=== PATIENT | female | born 1950 | race Hispanic/Latino ===

== ENCOUNTER → 2020-05-19 | Outpatient (CLI) | payer MEDICARE, OTHER ==
--- NOTE | 2020-05-19 14:24 | Diagnostic Imaging Report ---
TECHNIQUE: Magnetic resonance imaging of the RIGHT KNEE was performed WITHOUT injected contrast. HISTORY: Right knee pain, right knee medial/lateral meniscus tear COMPARISON: None available. FINDINGS: LIGAMENTS AND TENDONS: ACL: Intact PCL: Intact Collateral ligaments: Intact Iliotibial band: Unremarkable Popliteal tendon: Intact Extensor mechanism: Intact. Enthesopathic changes at the quadriceps insertion on the superior patella. Mild increased signal of the semimembranosus insertion, consistent with tendinosis without discrete tear. JOINT: Menisci: Medial: Oblique undersurface tear at the body and posterior horn. Meniscal fragment at the body extends into the meniscotibial recess. Lateral: Intact Articular Cartilage: Medial Compartment: Low-grade cartilage loss along the weightbearing medial femoral condyle. No focal defect. Lateral Compartment: Focal low-grade cartilage fissuring along the inner aspect of the lateral tibial plateau. Patellofemoral Compartment: Patellar cartilage remains intact. Low-grade cartilage fissuring along the lateral trochlear groove. Joint Fluid: The amount of fluid within the joint is within physiologic limits. BONE: No focal or infiltrative bone marrow replacing abnormality. No acute fracture. SOFT TISSUES: Mild subcutaneous edema in the anterior soft tissues. IMPRESSION: Oblique undersurface tear at the body and posterior horn of the medial meniscus with meniscal fragment extending into the meniscotibial recess. Minimal tricompartmental cartilage degeneration. Mild tendinosis of the semimembranosus insertion. Signed by: Dr. Casa Archuleta M.D. on 05/19/2020 2:21 PM
== END ==
LOC: MRI 12:25
PROVIDERS: ATTEND Specialist
DX: S83.241A Other tear of medial meniscus, current injury, right knee, initial encounter (principal)

== ENCOUNTER → 2020-07-07 | Day surgery (SDC) | payer MEDICARE, OTHER ==
[2020-07-05 09:41] LABS: BASOPHILS % 0.6 % (0.0-1.0); EOSINOPHILS # (AUTO) 0.3 (0.0-0.4); EOSINOPHILS % 4.6 % (0.0-6.0); HEMATOCRIT 44.7 % (34.2-44.1); HEMOGLOBIN 14.8 g/dL (12.0-16.0); LYMPHOCYTES # (AUTO) 1.7 (1.0-3.2); LYMPHOCYTES % 27.5 % (18.0-39.1); MEAN CORPUSCULAR HEMOGLOBIN 31.4 pg (28-32); MEAN CORPUSCULAR HGB CONC 33.1 g/dL (31-35); MEAN CORPUSCULAR VOLUME 94.9 fL (81-99); MONOCYTES # (AUTO) 0.5 (0.2-0.8); MONOCYTES % 7.9 % (4.4-11.3); NEUTROPHILS # (AUTO) 3.7 (2.1-6.9); NEUTROPHILS % 59.1 % (38.7-80.0); PLATELET COUNT 178 x10e3/uL (140-360); RED BLOOD COUNT 4.71 x10e6/uL (3.6-5.1)
[~2020-07-07] MED LIST: BUPIVACAINE 0.5%/EPI 30 ML SDV INJ ONE; CALCET TABLET1 EACH PO; CALCIUM ACETAT667 MG PO; CEFAZOLIN SOD 1 GM/NS 50ML 100 ML IV ONE; DEXAMETHASONE SOD PHOS INJ 4 MG/ML VIAL ONE; FENTANYL CITRATE/PF 100MCG/2 ML INJ ONE; FLUTICASONE; KETOROLAC TROMETHAMINE 30 MG/ML VIAL ONE; LIDOCAINE HCL 2% LOCAL INJ 5 ML SDV VIAL INJ ONE; LISINOPRIL5 MG PO; OMEPRAZOLE40 MG PO; ONDANSETRON HCL INJ 2MG/ML 2ML 2 MG/ML VIAL ONE; PRESERVISION A1 EAC2 PO; PROPOFOL IV EMULSION 10 MG/ML 20 ML VIAL ONE; SEVOFLURANE INHAL SOLN 250 ML PEN BTL ONE; VIT C PO; VIT D PO
[2020-07-07 09:15] VITALS: BP 142/70
== END | disposition home or self-care (01) ==
LOC: OR 05:35
PROVIDERS: ATTEND Specialist
DX: S83.221A Peripheral tear of medial meniscus, current injury, right knee, initial encounter (principal); M17.11 Unilateral primary osteoarthritis, right knee; I10 Essential (primary) hypertension; Z01.810 Encounter for preprocedural cardiovascular examination; Z01.812 Encounter for preprocedural laboratory examination; Z20.822 Contact with and (suspected) exposure to COVID-19
CPT/HCPCS: 29881; 36415; 71046; 85025; 93005; J0690; J1100; J1885; J2001; J2405; J2704; J3010; U0002

== ENCOUNTER 2021-06-23 18:08 | Emergency (ER) | payer MEDICARE, OTHER ==
[~2021-06-23] VITALS: Ht 157.5 cm; Wt 96.2 kg
[~2021-06-23 18:08] MED LIST changes: -BUPIVACAINE 0.5%/EPI 30 ML SDV INJ ONE; -CEFAZOLIN SOD 1 GM/NS 50ML 100 ML IV ONE; -DEXAMETHASONE SOD PHOS INJ 4 MG/ML VIAL ONE; -FENTANYL CITRATE/PF 100MCG/2 ML INJ ONE; -KETOROLAC TROMETHAMINE 30 MG/ML VIAL ONE; -LIDOCAINE HCL 2% LOCAL INJ 5 ML SDV VIAL INJ ONE; -ONDANSETRON HCL INJ 2MG/ML 2ML 2 MG/ML VIAL ONE; -PROPOFOL IV EMULSION 10 MG/ML 20 ML VIAL ONE; -SEVOFLURANE INHAL SOLN 250 ML PEN BTL ONE
[2021-06-23] MEDS ORDERED: ZITHROMAX250 MG PO (20:07)
== END 2021-06-23 21:00 | disposition home or self-care (01) ==
LOC: FSED 18:56
DX: J02.9 Acute pharyngitis, unspecified (principal); J20.9 Acute bronchitis, unspecified
CPT/HCPCS: 71045; 99283; U0002

== ENCOUNTER 2022-04-28 10:20 | Emergency (ER) | payer MEDICARE, OTHER ==
[~2022-04-28] VITALS: Ht 157.5 cm; Wt 95.3 kg
[~2022-04-28 10:20] MED LIST changes: +ZITHROMAX250 MG PO
[2022-04-28] MEDS ORDERED: VALACYCLOVIR500 MG PO (10:54)
[2022-04-28] MEDS ORDERED: BACTRIM DS TAB1 EACH PO (12:28)
[2022-04-28] MEDS ORDERED: IBUPROFEN 400 MG TAB PO ONE (12:30)
[2022-04-28] MEDS ORDERED: IBUPROFEN 400 MG TAB ONE (12:38)
== END 2022-04-28 12:35 | disposition home or self-care (01) ==
LOC: FSED 10:49
DX: R42 Dizziness and giddiness (principal); I10 Essential (primary) hypertension; K21.9 Gastro-esophageal reflux disease without esophagitis; H35.30 Unspecified macular degeneration
CPT/HCPCS: 70450; 71045; 80048; 80053; 81003; 82553; 84484; 85025; 93005; 99284

== ENCOUNTER 2022-09-13 09:44 | Emergency (ER) | payer MEDICARE, OTHER ==
[~2022-09-13] VITALS: Ht 157.5 cm; Wt 92.6 kg
[~2022-09-13 09:44] MED LIST changes: +BACTRIM DS TAB1 EACH PO; +VALACYCLOVIR500 MG PO
[2022-09-13] MEDS ORDERED: CYCLOBENZAPRINE5 MG PO (10:45)
== END 2022-09-13 10:54 | disposition home or self-care (01) ==
LOC: FSED 09:55
DX: S20.211A Contusion of right front wall of thorax, initial encounter (principal); X50.1XXA Overexertion from prolonged static or awkward postures, initial encounter; Y92.89 Other specified places as the place of occurrence of the external cause; I10 Essential (primary) hypertension; K21.9 Gastro-esophageal reflux disease without esophagitis; H35.30 Unspecified macular degeneration
CPT/HCPCS: 71046; 99283

== ENCOUNTER 2025-03-03 13:05 | Emergency (ER) | payer MEDICARE, OTHER ==
[~2025-03-03] VITALS: Ht 157.5 cm; Wt 95.5 kg
[~2025-03-03 13:05] MED LIST changes: +CYCLOBENZAPRINE5 MG PO
[2025-03-03] MEDS ORDERED: LISINOPRIL10 MG PO (13:46)
[2025-03-03] MEDS ORDERED: METHOCARBAMOL750 MG PO (13:46)
[2025-03-03] MEDS ORDERED: VITAMIN B-121000 MC2 PO (13:46)
[2025-03-03] MEDS ORDERED: AMLODIPINE BESYL5 MG PO (13:46)
[2025-03-03] MEDS ORDERED: CLINDAMYCIN HC150 MG PO (13:51)
[2025-03-03 14:01] VITALS: PULSE 84; RESP 16; TEMP 98.3; O2SAT 96
[2025-03-03] MEDS: DIPHTH,PERTUSS(ACELL),TET VAC 0.5 ML SYRINGE IM ONE (14:19)
== END 2025-03-03 14:01 | disposition home or self-care (01) ==
LOC: FSED 13:30
DX: L03.012 Cellulitis of left finger (principal); S61.211A Laceration without foreign body of left index finger without damage to nail, initial encounter; W26.0XXA Contact with knife, initial encounter; Y92.89 Other specified places as the place of occurrence of the external cause; I10 Essential (primary) hypertension; K21.9 Gastro-esophageal reflux disease without esophagitis
CPT/HCPCS: 90471; 90714; 96372; 99283